=== PATIENT | female | born 1970 | race Caucasian/White ===

== ENCOUNTER 2020-07-17 19:50 | Emergency (ER) | payer OTHER ==
[~2020-07-17] VITALS: Ht 154.9 cm; Wt 71.3 kg
[2020-07-17 19:52] VITALS: BP 136/86
--- NOTE | 2020-07-17 20:04 | NUR ---
PT UNABLE TO COMPLETE VA'S, LEFT EYE IS BLURRED. CAN NOT OPEN BOTH.
[2020-07-17] MEDS ORDERED: PROPARACAINE OPHTH 0.5%, 15ML ONE (20:20)
[2020-07-17] MEDS ORDERED: FLUORESCEIN OPHTHALMIC 1 MG STRIP ONE (20:20)
[2020-07-17] MEDS ORDERED: PROPARACAINE OPHTH 0.5%, 15ML LEFTEYE ONE (20:30)
[2020-07-17] MEDS ORDERED: FLUORESCEIN OPHTHALMIC 1 MG STRIP LEFTEYE ONE (20:30)
== END 2020-07-17 21:39 | disposition home or self-care (01) ==
LOC: ED 21:23
DX: S05.02XA Injury of conjunctiva and corneal abrasion without foreign body, left eye, initial encounter (principal); X58.XXXA Exposure to other specified factors, initial encounter; Y93.89 Activity, other specified; Y92.89 Other specified places as the place of occurrence of the external cause; Y99.8 Other external cause status
CPT/HCPCS: 99283

== ENCOUNTER 2020-09-10 11:17 | Emergency (ER) | payer OTHER ==
[~2020-09-10] VITALS: Ht 154.9 cm; Wt 69.8 kg
[2020-09-10 11:44] VITALS: BP 126/84
--- NOTE | 2020-09-10 14:16 | NUR ---
PT SITTING UP IN BED. PT HAS BEEN SWABBED BY PROVIDER IN TRIAGE. CURRENTLY AWAITING ER PROVIDER ASSESSMENT IN ED ROOM. NAD NOTED AT THIS TIME. CALL LIGHT IN REACH, SIDE RAIL UP.
== END 2020-09-10 15:00 | disposition home or self-care (01) ==
LOC: ED 11:30
DX: J02.8 Acute pharyngitis due to other specified organisms (principal); Z20.822 Contact with and (suspected) exposure to COVID-19; B97.89 Other viral agents as the cause of diseases classified elsewhere
CPT/HCPCS: 99283; U0003; U0005